=== PATIENT | male | born 1990 | race Caucasian/White ===

== ENCOUNTER 2018-11-09 23:46 | Emergency (ER) | payer BC, OTHER ==
[~2018-11-09] VITALS: Ht 172.7 cm; Wt 123.1 kg
[~2018-11-09 23:46] MED LIST: IBUP-1542 PO
[2018-11-09 23:56] VITALS: BP 132/81; PULSE 86; RESP 20; Ht 172.7 cm; Wt 123.1 kg
== END 2018-11-10 02:10 | disposition home or self-care (01) ==
LOC: FTE 23:46
DX: S20.219A Contusion of unspecified front wall of thorax, initial encounter (principal); S30.1XXA Contusion of abdominal wall, initial encounter; R07.9 Chest pain, unspecified; V49.49XA Driver injured in collision with other motor vehicles in traffic accident, initial encounter
CPT/HCPCS: 71045; 81001; 81003; 93005